=== PATIENT | male | born 1960 ===

== ENCOUNTER 2018-03-04 16:52 | Inpatient (IN) ==
[2018-03-04] MEDS ORDERED: HYDROmorphone 2 MG/1 ML VIAL IV PRN (17:01)
[2018-03-04] MEDS ORDERED: DEXTROSE 50% 25 GM/50 ML SYRINGE IV PRN (17:01)
[2018-03-04] MEDS ORDERED: PROMETHAZINE 25 MG/1 ML VIAL IM PRN (17:01)
[2018-03-04] MEDS ORDERED: ACETAMINOPHEN 325 MG TABLET PO PRN (17:01)
[2018-03-04] MEDS ORDERED: ONDANSETRON 4 MG/2 ML VIAL IV PRN (17:01)
[2018-03-04] MEDS ORDERED: GLUCAGON 1 MG VIAL IM PRN (17:01)
[2018-03-04] MEDS: INSULIN REGULAR 100 UNIT/ML SUBCUT SCH (20:20)
[2018-03-04 21:15] LABS: Basophils % 0.2 % (0.0-0.8); Eosinophils # 0.2 10*3/uL (0.0-0.87); Eosinophils % 1.1 % (0.00-10.9); Hematocrit 38.3 VOL% (42.0-52.0); Hemoglobin 12.9 GM/DL (14.0-18.0); Immature Granulocytes % 0.7 %; Immature Granulocytes Absolute 0.12 #; Lymphocytes # 1.8 10*3/uL (1.4-4.0); Lymphocytes % 9.7 % (21.2-54.2); Mean Corpuscular HGB Conc 33.7 GM/DL (32-36); Mean Corpuscular Hemoglobin 30 PG (27-34); Mean Corpuscular Volume 87.4 FL (87-102); Mean Platelet Volume 10.7 FL (9.6-12.0); Monocytes # 0.8 10*3/uL (0.11-0.8); Monocytes % 4.3 % (1.7-12.7); Neutrophils # 15.4 10*3/uL (1.4-7.4); Platelet Count 294 T/CUMM (130-400); Red Blood Count 4.38 MC/CUMM (3.8-5.5); Red Cell Distribution Width 13.2 % (9.3-17.3); White Blood Count 18.3 T/CUMM (4-12)
[2018-03-04] MEDS: LACTATED RINGERS 1,000 ML IV SCH (21:23)
[2018-03-04 21:47] LABS: Calcium 7.8 MG/DL (8.5-10.1); Potassium 3.6 MMOL/L (3.5-5.1)
[2018-03-05] MEDS: VANCOMYCIN INJ 1,250 MG in SODIUM CHLORIDE 0.9% 250 ML IV SCH ×2 (00:45→14:10)
[2018-03-05] MEDS: PIPERACILLIN/TAZOBACTAM 3,375 MG in SODIUM CHLORIDE 0.9% 100 ML IV SCH ×3 (01:49→17:50)
[2018-03-05] MEDS: LACTATED RINGERS 1,000 ML IV SCH ×3 (01:51→16:34)
[2018-03-05 06:05] LABS: Basophils % 0.2 % (0.0-0.8); Eosinophils # 0.5 10*3/uL (0.0-0.87); Eosinophils % 2.8 % (0.00-10.9); Hematocrit 36.4 VOL% (42.0-52.0); Hemoglobin 12.1 GM/DL (14.0-18.0); Immature Granulocytes Absolute 0.16 #; Lymphocytes # 1.8 10*3/uL (1.4-4.0); Lymphocytes % 10.5 % (21.2-54.2); Mean Corpuscular HGB Conc 33.2 GM/DL (32-36); Mean Corpuscular Hemoglobin 29 PG (27-34); Mean Corpuscular Volume 88.1 FL (87-102); Mean Platelet Volume 10.9 FL (9.6-12.0); Monocytes # 0.8 10*3/uL (0.11-0.8); Monocytes % 4.8 % (1.7-12.7); Neutrophils # 13.4 10*3/uL (1.4-7.4); Neutrophils % 80.7 % (38.7-73.9); Platelet Count 257 T/CUMM (130-400); Red Blood Count 4.13 MC/CUMM (3.8-5.5); Red Cell Distribution Width 13.1 % (9.3-17.3); White Blood Count 16.7 T/CUMM (4-12)
[2018-03-05 06:23] LABS: Calcium 7.9 MG/DL (8.5-10.1); Osmolality,Calculated 272.2 MOS/KG (273-304); Potassium 3.5 MMOL/L (3.5-5.1)
[2018-03-05] MEDS: INSULIN REGULAR 100 UNIT/ML SUBCUT SCH ×4 (08:05→21:07)
[2018-03-05] MEDS: PANTOPRAZOLE 40 MG TABLET PO SCH (08:40)
[2018-03-05] MEDS: ENOXAPARIN 40 MG/0.4 ML SYRINGE SUBCUT SCH (08:40)
[2018-03-05] MEDS ORDERED: DICYCLOMINE 20 MG TABLET PO PRN (09:58)
[2018-03-05] MEDS: SIMETHICONE CHEW 80 MG TABLET PO SCH ×3 (14:45→21:08)
[2018-03-05] MEDS: LISINOPRIL 10 MG TABLET PO SCH (21:08)
[2018-03-05] MEDS: DOCUSATE/SENNA 50-8.6 MG TABLET PO SCH (21:08)
[2018-03-05] MEDS: SIMVASTATIN 20 MG TABLET PO SCH (21:08)
[2018-03-06] MEDS: VANCOMYCIN INJ 1,250 MG in SODIUM CHLORIDE 0.9% 250 ML IV SCH ×3 (00:33→23:28)
[2018-03-06] MEDS: PIPERACILLIN/TAZOBACTAM 3,375 MG in SODIUM CHLORIDE 0.9% 100 ML IV SCH ×3 (01:48→23:29)
[2018-03-06] MEDS: LACTATED RINGERS 1,000 ML IV SCH ×2 (06:09→13:37)
[2018-03-06 06:22] LABS: Basophils % 0.2 % (0.0-0.8); Eosinophils # 0.5 10*3/uL (0.0-0.87); Hematocrit 35.1 VOL% (42.0-52.0); Hemoglobin 11.7 GM/DL (14.0-18.0); Immature Granulocytes % 0.7 %; Immature Granulocytes Absolute 0.09 #; Lymphocytes # 1.5 10*3/uL (1.4-4.0); Lymphocytes % 12.3 % (21.2-54.2); Mean Corpuscular HGB Conc 33.3 GM/DL (32-36); Mean Corpuscular Hemoglobin 29 PG (27-34); Mean Corpuscular Volume 86.9 FL (87-102); Mean Platelet Volume 10.2 FL (9.6-12.0); Monocytes # 0.9 10*3/uL (0.11-0.8); Monocytes % 6.8 % (1.7-12.7); Neutrophils # 9.6 10*3/uL (1.4-7.4); Platelet Count 269 T/CUMM (130-400); Red Blood Count 4.04 MC/CUMM (3.8-5.5); White Blood Count 12.6 T/CUMM (4-12)
[2018-03-06 06:38] LABS: Potassium 3.5 MMOL/L (3.5-5.1)
[2018-03-06] MEDS: INSULIN REGULAR 100 UNIT/ML SUBCUT SCH ×4 (08:32→21:31)
[2018-03-06] MEDS: ENOXAPARIN 40 MG/0.4 ML SYRINGE SUBCUT SCH (12:35)
[2018-03-06] MEDS: DOCUSATE/SENNA 50-8.6 MG TABLET PO SCH ×2 (12:36→21:31)
[2018-03-06] MEDS: PANTOPRAZOLE 40 MG TABLET PO SCH (12:36)
[2018-03-06] MEDS: SIMETHICONE CHEW 80 MG TABLET PO SCH ×4 (12:36→21:31)
[2018-03-06] MEDS: SIMVASTATIN 20 MG TABLET PO SCH (21:31)
[2018-03-06] MEDS: LISINOPRIL 10 MG TABLET PO SCH (21:31)
[2018-03-07 05:58] LABS: Basophils % 0.2 % (0.0-0.8); Eosinophils # 0.5 10*3/uL (0.0-0.87); Eosinophils % 4.8 % (0.00-10.9); Hematocrit 34.4 VOL% (42.0-52.0); Hemoglobin 11.3 GM/DL (14.0-18.0); Immature Granulocytes % 0.7 %; Immature Granulocytes Absolute 0.08 #; Lymphocytes # 1.2 10*3/uL (1.4-4.0); Lymphocytes % 11.2 % (21.2-54.2); Mean Corpuscular HGB Conc 32.8 GM/DL (32-36); Mean Corpuscular Hemoglobin 29 PG (27-34); Mean Corpuscular Volume 87.1 FL (87-102); Mean Platelet Volume 10.5 FL (9.6-12.0); Monocytes # 1.2 10*3/uL (0.11-0.8); Monocytes % 10.6 % (1.7-12.7); Neutrophils % 72.5 % (38.7-73.9); Platelet Count 293 T/CUMM (130-400); Red Blood Count 3.95 MC/CUMM (3.8-5.5)
[2018-03-07 06:31] LABS: Calcium 7.4 MG/DL (8.5-10.1); Osmolality,Calculated 271.8 MOS/KG (273-304)
[2018-03-07] MEDS: PIPERACILLIN/TAZOBACTAM 3,375 MG in SODIUM CHLORIDE 0.9% 100 ML IV SCH (06:35)
[2018-03-07] MEDS: INSULIN REGULAR 100 UNIT/ML SUBCUT SCH ×2 (07:30→12:34)
[2018-03-07] MEDS: DOCUSATE/SENNA 50-8.6 MG TABLET PO SCH (09:30)
[2018-03-07] MEDS: ENOXAPARIN 40 MG/0.4 ML SYRINGE SUBCUT SCH (09:30)
[2018-03-07] MEDS: PANTOPRAZOLE 40 MG TABLET PO SCH (09:31)
[2018-03-07] MEDS: SIMETHICONE CHEW 80 MG TABLET PO SCH ×2 (09:31→12:33)
[2018-03-07] MEDS: LACTATED RINGERS 1,000 ML IV SCH ×3 (10:15→16:19)
[2018-03-07] MEDS ORDERED: POTASSIUM CHLORIDE 20 MEQ TABLET PO PRN (11:22)
[2018-03-07 11:58] VITALS: BP 129/72
[2018-03-07] MEDS ORDERED: CIPROFLOXACIN 500 MG TABLET PO SCH (12:00)
== END 2018-03-07 15:30 | disposition home or self-care (01) | DRG 863 ==
LOC: N.ICU 19:38 → N.3E 03-05 17:54
PROVIDERS: ADMIT Surgery; ATTEND Surgery